=== PATIENT | male | born 1940 | race Caucasian/White ===

== ENCOUNTER 2017-04-16 22:01 | Emergency (ER) | payer MEDICARE, BC ==
[2017-04-17] MEDS ORDERED: Ondansetron INJ* 2 MG/ML VIAL IV ONE (00:26)
[2017-04-17] MEDS ORDERED: NS 0.9% 1000 ML* 2,000 ML IV ONE (00:26)
[2017-04-17] MEDS ORDERED: Morphine INJ* 4 MG/ML 1 ML SYRINGE IV ONE (00:26)
[2017-04-17 01:06] LABS: Hematocrit 40 % (42-52); Hemoglobin 13.6 g/dl (14.0-18.0); Mean Corpuscular HGB Conc 34 g/dl (31-36); Mean Corpuscular Hemoglobin 34 pg (27-31); Mean Corpuscular Volume 101 fL (80-94); Mean Platelet Volume 8 um3 (7.4-10.4); Red Cell Distribution Width 13 % (10.5-15); White Blood Count 18.8 10^3/ul (3.5-10.8)
[2017-04-17 01:18] LABS: Add Diff/Slide Review? Slide Review Added; Comments Flag Yes
[2017-04-17 01:34] LABS: C Reactive Protein 68.29 mg/L (< 5.00); Total Protein 7.2 g/dL (6.4-8.9)
[2017-04-17 01:46] LABS: Albumin 4.4 g/dL (3.2-5.2); BUN/Creatinine Ratio 17.6 (8-20); Calcium 9.5 mg/dL (8.6-10.3); EGFR Non-African American 87.9 (>60); Globulin 2.5 g/dL (2-4); Potassium 3.9 mmol/L (3.5-5.0); Total Bilirubin 0.9 mg/dL (0.2-1.0)
[2017-04-17 01:56] LABS: Immature Granulocytes 2 % (0-9); Neutrophil % 47 % (38-83); Reactive Lymph % 7 % (0-6)
[2017-04-17 01:57] LABS: Hypochromasia 1+; Macrocytosis 1+; Microcytosis 1+
[2017-04-17] MEDS ORDERED: Iohexol 300* (CONTRAST) 10 ML SDV IV ONE (01:57)
[2017-04-17 02:47] LABS: Urine Bilirubin Negative (Negative); Urine Glucose Negative (Negative); Urine Nitrite Negative (Negative)
[2017-04-17] MEDS ORDERED: Ciprofloxacin TAB* 500 MG PO ONE (03:38)
[2017-04-17] MEDS ORDERED: HYDROcodone/ACETAMIN 5-325 MG* 1 TAB PO ONE (03:39)
[2017-04-17] MEDS ORDERED: metroNIDAZOLE TAB* 250 MG PO ONE (03:39)
[2017-04-17 04:08] VITALS: BP 115/57
--- NOTE | 2017-04-17 04:19 | ED ---
Zacarias Jang Alok, scribed for Florin He MD on 04/17/17 at 0101 . Abdominal Pain/Male - HPI Summary HPI Summary: 76M presents to the ED with left-sided abd pain for the last 3 days. The patient states his abd pain comes and goes, waxing and waning in intensity and is accompanied by constipation. Pt states his abd pain worsens with food and ambulation. Pt denies nausea, fever, chills, back pain, or testicular pain. Pt denies loss of appetite. Pt denies CP, SOB, or rash. PMHx includes h/o diverticulitis x3, last episode December 2015. Pt drinks ETOH occasionally and is a former tobacco smoker. - History of Current Complaint Chief Complaint: EDAbdPain Stated Complaint: ABD PAIN Time Seen by Provider: 04/17/17 00:07 Hx Obtained From: Patient Onset/Duration: Lasting Days, Still Present Timing: Intermittent Severity Initially: Moderate Severity Currently: Moderate Pain Intensity: 8 Pain Scale Used: 0-10 Numeric Location: Discrete At: LLQ Radiates: No Aggravating Factor(s): Food, Movement Alleviating Factor(s): Nothing Associated Signs And Symptoms: Positive: Constipation. Negative: Fever, Chest Pain, Back Pain, Decreased Appetite, Nausea - Allergies/Home Medications Allergies/Adverse Reactions: Allergies Allergy/AdvReac Type Severity Reaction Status Date / Time No Known Allergies Allergy Verified 11/20/13 14:32 PMH/Surg Hx/FS Hx/Imm Hx Endocrine/Hematology History: Denies: Hx Diabetes, Hx Thyroid Disease Cardiovascular History: Denies: Hx Hypertension Respiratory History: Denies: Hx Asthma, Hx Chronic Obstructive Pulmonary Disease (COPD) GI History: Denies: Hx Ulcer - Surgical History Surgery Procedure, Year, and Place: Pleuarodesis, Tonsillectomy, deviated septum Infectious Disease History: No Infectious Disease History: Denies: Hx Clostridium Difficile, Hx Hepatitis, Hx Human Immunodeficiency Virus (HIV), Hx of Known/Suspected MRSA, Hx Shingles, Hx Tuberculosis, Hx Known/ Suspected VRE, Hx Known/Suspected VRSA, History Other Infectious Disease, Traveled Outside the [place] in Last 30 Days - Family History Known Family History: Positive: Other - No- diverticulitis - Social History Occupation: Retired Lives: With Family Alcohol Use: Daily Alcohol Amount: 1 cocktail and a beer. Substance Use Type: Reports: None Smoking Status (MU): Former Smoker Review of Systems Negative: Fever, Chills Negative: Chest Pain Negative: Shortness Of Breath Positive: Abdominal Pain, Other - constipation. Negative: Nausea Negative: pain - testicular Negative: Other - back pain Negative: Rash All Other Systems Reviewed And Are Negative: Yes Physical Exam - Summary Physical Exam Summary: The patient is well-nourished in no acute distress and in no acute pain. The skin is warm and dry and skin color reflects adequate perfusion. HEENT: The head is normocephalic and atraumatic. The pupils are equal and reactive. The conjunctivae are clear and without drainage. Nares are patent and without drainage. Mouth reveals moist mucous membranes and the throat is without erythema and exudate. The external ears are intact. The ear canals are patent and without drainage. The tympanic membranes are intact. Neck is supple with full range of motion and non-tender. There are no carotid bruits. There is no neck vein distension. Respiratory: Chest is non-tender. Lungs are clear to auscultation and breath sounds are symmetrical and equal. Cardiovascular: Hear is regular rate and rhythm. There is no murmur or rub auscultated. There is no peripheral edema and pulses are symmetrical and equal. No tachycardia. Good femoral pulses. Abdomen: Left lower quadrant tenderness. Positive Guarding. Rebound questionable. Hyperactive bowel sounds. Musculoskeletal: There is no back pain noted. No CVA tenderness. Extremities are non-tender with full range of motion. There is good capillary refill. There is no peripheral edema or calf tenderness elicited. Neurological: Patient is alert and oriented to person, place and time. The patient has symmetrical motor strength in all four extremities. Cranial nerves are grossly intact. Deep tendon reflexes are symmetrical and equal in all four extremities. Psychiatric: The patient has an appropriate affect and does not exhibit any anxiety or depression. Triage Information Reviewed: Yes Vital Signs On Initial Exam: Initial Vitals Temp Pulse Resp BP Pulse Ox 98.9 F 92 18 130/70 99 04/16/17 22:15 04/16/17 22:15 04/16/17 22:15 04/16/17 22:15 04/16/17 22:15 Vital Signs Reviewed: Yes - [place] Coma Scale Coma Scale Total: 15 Diagnostics - Vital Signs Vital Signs Temp Pulse Resp BP Pulse Ox 04/17/17 00:43 19 04/17/17 00:00 92 96 04/16/17 23:30 90 123/64 98 04/16/17 23:00 89 124/64 98 04/16/17 22:53 91 99 04/16/17 22:52 125/57 04/16/17 22:51 98.2 F 90 19 123/72 99 04/16/17 22:15 98.9 F 92 18 130/70 99 - Laboratory Lab Results: Lab Results 04/16/17 04/17/17 04/17/17 Range/Units 22:45 00:40 00:40 WBC 18.8 H (3.5-10.8) 10^3/ul RBC 4.00 (4.0-5.4) 10^6/ul Hgb 13.6 L (14.0-18.0) g/dl Hct 40 L (42-52) % MCV 101 H (80-94) fL MCH 34 H (27-31) pg MCHC 34 (31-36) g/dl RDW 13 (10.5-15) % Plt Count 247 (150-450) 10^3/ul MPV 8 (7.4-10.4) um3 Immature Gran % (Auto) 2 (0-9) % Neut % (Auto) 47.1 (38-83) % Lymph % (Auto) 44.0 (25-47) % [place] % (Auto) 7.9 (1-9) % Eos % (Auto) 0.1 (0-6) % Baso % (Auto) 0.9 (0-2) % Absolute Neuts (auto) 8.8 H (1.5-7.7) 10^3/ul Absolute Lymphs (auto) 8.3 H (1.0-4.8) 10^3/ul Absolute Monos (auto) 1.5 H (0-0.8) 10^3/ul Absolute Eos (auto) 0 (0-0.6) 10^3/ul Absolute Basos (auto) 0.2 (0-0.2) 10^3/ul Absolute Nucleated RBC 0.03 10^3/ul Neutrophils % 47 (38-83) % Band Neutrophils % 2 (0-8) % Lymphocytes % 30 (25-47) % Reactive Lymphs % 7 H (0-6) % Monocytes % 14 H (0-13) % Nucleated RBC % 0.1 Normal RBC Morphology Not Reportable Hypochromasia 1+ Microcytosis 1+ Macrocytosis 1+ Sodium 134 (133-145) mmol/L Potassium 3.9 (3.5-5.0) mmol/L Chloride 100 L (101-111) mmol/L Carbon Dioxide 23 (22-32) mmol/L Anion Gap 10 (2-11) mmol/L BUN 17 (6-24) mg/dL Creatinine 0.85 (0.67-1.17) mg/dL Est GFR ( Amer) 113.0 (>60) Est GFR (Non-Af Amer) 87.9 (>60) BUN/Creatinine Ratio 17.6 (8-20) Glucose 130 H (70-100) mg/dL Lactic Acid (0.5-2.0) mmol/L Calcium 9.5 (8.6-10.3) mg/dL Total Bilirubin 0.90 (0.2-1.0) mg/dL AST 94 H (13-39) U/L ALT 21 (7-52) U/L Alkaline Phosphatase 73 (34-104) U/L C-Reactive Protein 68.29 H (< 5.00) mg/L Total Protein 7.2 (6.4-8.9) g/dL Albumin 4.4 (3.2-5.2) g/dL Globulin 2.5 (2-4) g/dL Albumin/Globulin Ratio 1.8 (1-3) Lipase 14 (11.0-82.0) U/L Urine Color [place] Urine Appearance Turbid Urine pH 5.0 (5-9) Ur Specific [place] 1.025 (1.010-1.030) Urine Protein Negative (Negative) Urine Ketones 1+ H (Negative) Urine Blood Negative (Negative) Urine Nitrate Negative (Negative) Urine Bilirubin Negative (Negative) Urine Urobilinogen Negative (Negative) Ur Leukocyte Esterase Negative (Negative) Urine Glucose Negative (Negative) 04/17/17 Range/Units 00:40 WBC (3.5-10.8) 10^3/ul RBC (4.0-5.4) 10^6/ul Hgb (14.0-18.0) g/dl Hct (42-52) % MCV (80-94) fL MCH (27-31) pg MCHC (31-36) g/dl RDW (10.5-15) % Plt Count (150-450) 10^3/ul MPV (7.4-10.4) um3 Immature Gran % (Auto) (0-9) % Neut % (Auto) (38-83) % Lymph % (Auto) (25-47) % [place] % (Auto) (1-9) % Eos % (Auto) (0-6) % Baso % (Auto) (0-2) % Absolute Neuts (auto) (1.5-7.7) 10^3/ul Absolute Lymphs (auto) (1.0-4.8) 10^3/ul Absolute Monos (auto) (0-0.8) 10^3/ul Absolute Eos (auto) (0-0.6) 10^3/ul Absolute Basos (auto) (0-0.2) 10^3/ul Absolute Nucleated RBC 10^3/ul Neutrophils % (38-83) % Band Neutrophils % (0-8) % Lymphocytes % (25-47) % Reactive Lymphs % (0-6) % Monocytes % (0-13) % Nucleated RBC % Normal RBC Morphology Hypochromasia Microcytosis Macrocytosis Sodium (133-145) mmol/L Potassium (3.5-5.0) mmol/L Chloride (101-111) mmol/L Carbon Dioxide (22-32) mmol/L Anion Gap (2-11) mmol/L BUN (6-24) mg/dL Creatinine (0.67-1.17) mg/dL Est GFR ( Amer) (>60) Est GFR (Non-Af Amer) (>60) BUN/Creatinine Ratio (8-20) Glucose (70-100) mg/dL Lactic Acid 0.7 (0.5-2.0) mmol/L Calcium (8.6-10.3) mg/dL Total Bilirubin (0.2-1.0) mg/dL AST (13-39) U/L ALT (7-52) U/L Alkaline Phosphatase (34-104) U/L C-Reactive Protein (< 5.00) mg/L Total Protein (6.4-8.9) g/dL Albumin (3.2-5.2) g/dL Globulin (2-4) g/dL Albumin/Globulin Ratio (1-3) Lipase (11.0-82.0) U/L Urine Color Urine Appearance Urine pH (5-9) Ur Specific [place] (1.010-1.030) Urine Protein (Negative) Urine Ketones (Negative) Urine Blood (Negative) Urine Nitrate (Negative) Urine Bilirubin (Negative) Urine Urobilinogen (Negative) Ur Leukocyte Esterase (Negative) Urine Glucose (Negative) Result Diagrams: 04/17/17 00:40 04/17/17 00:40 Lab Statement: Any lab studies that have been ordered have been reviewed, and results considered in the medical decision making process. - CT abd/pel CT CT Interpretation: Positive (See Comments) - IMPRESSION: DIVERTICULITIS WITHOUT ABSCESS FORMATION OR PERFORATION CT Interpretation Completed By: Radiologist Re-Evaluation - Re-Evaluation First Eval Re-Evaluation Time: 03:34 Change: Unchanged Comment: Discussed lab and CT results. Will discharge pt home and he agrees. Abdominal Pain Fem Course/Dx - Course Course Of Treatment: Pt presented with left-sided abd pain and h/o diverticulitis. abd/pel ct showed diverticulitis. Will discharge home with rx for cipro, flagyl, and hydrocodone and recommendation to FU with PCP. - Diagnoses Differential Diagnosis/HQI/PQRI: Appendicitis, Constipation, Diverticulitis, Urinary Tract Infection Provider Diagnoses: Acute diverticulitis Discharge - Discharge Plan Condition: Stable Disposition: HOME Prescriptions: Ciprofloxacin TAB* [Cipro 500 MG TAB*] 500 mg PO BID #20 tab HYDROcodone/ACETAMIN 5-325 MG* [[place] 5-325 TAB*] 1 tab PO Q6H PRN #16 tab MDD 4 PRN Reason: pain Metronidazole [Flagyl 500 MG TAB] 500 mg PO QID #40 tab Patient Education Materials: Diverticulitis (ED) Referrals: Bassem Beckham MD [Primary Care Provider] - Additional Instructions: Please follow up with your primary care provider. The documentation as recorded by the Zacarias ventura Alok accurately reflects the service I personally performed and the decisions made by , Florin He MD.
--- NOTE | 2017-04-17 07:57 | RAD ---
CLINICAL HISTORY: Left lower quadrant pain COMPARISON: None TECHNIQUE: Multiple contiguous axial CT scans were obtained of the abdomen and pelvis after the administration of intravenous contrast. Coronal and sagittal multiplanar reformations are submitted for review. Oral contrast was administered. Delayed images were obtained through the abdomen and pelvis. FINDINGS: LUNG BASES: The lung bases are clear. LIVER: The liver is normal in shape, size, contour, and attenuation. BILE DUCTS: There is no intrahepatic or extrahepatic biliary dilatation. GALLBLADDER: The gallbladder is normal, without pericholecystic inflammatory change. PANCREAS: The pancreas is normal, without mass or ductal dilatation. SPLEEN: Normal in size and appearance. UPPER GI TRACT: Evaluation of the gastrointestinal tract is limited by incomplete gastric distention. The upper GI tract is unremarkable. SMALL BOWEL AND MESENTERY: The small bowel is normal in contour, course, and caliber. There is no obstruction or dilatation. COLON: There is large amount stool within the proximal colon. There is extensive diverticulosis of the descending and sigmoid colon. There is extensive mucosal thickening with stranding of the pericolonic fat of the sigmoid colon, consistent with diverticulitis. There is no loculated fluid collection to suggest abscess. ADRENALS: Normal bilaterally. KIDNEYS: The kidneys are normal in shape, size, contour, and axis. There is no hydronephrosis or nephrolithiasis. BLADDER: The bladder is smooth in contour. PELVIC ORGANS: The prostate is diffusely enlarged. The seminal vesicles are symmetric. AORTA: The aorta is normal. IVC: Unremarkable LYMPH NODES: There is no lymphadenopathy by size criteria. ABDOMINAL WALL: There is no evidence for abdominal wall hernia. BONES AND SOFT TISSUES: There are mild diffuse degenerative changes. OTHER: There is a small amount of free fluid within the pelvis. IMPRESSION: DIVERTICULITIS, WITHOUT LOCULATED FLUID COLLECTION TO SUGGEST ABSCESS. SMALL AMOUNT OF FREE FLUID WITHIN THE PELVIS. ENLARGED PROSTATE.
== END 2017-04-17 04:19 | disposition home or self-care (01) ==
LOC: ED 22:01
DX: K57.92 Diverticulitis of intestine, part unspecified, without perforation or abscess without bleeding (principal); R10.32 Left lower quadrant pain; K59.00 Constipation, unspecified; Z87.891 Personal history of nicotine dependence
CPT/HCPCS: 36415; 74177; 80053; 81003; 83605; 83690; 85025; 86140; 96374; 96375; 99284; A9270-GY; J2270; J2405; Q9967

== ENCOUNTER 2018-08-23 10:39 | Day surgery (SDC) | payer MEDICARE, BC ==
[~2018-08-23 10:39] MED LIST: Acetaminophen TAB* 325 MG PO PRN; Buffered Lidocaine 0.9% SYRIN* 5 ML/SYR SYRINGE INTRADERM ONE
[2018-08-23] MEDS ORDERED: fentaNYL* 50 MCG/ML 2 ML VIAL (100 MCG VIAL) ONE (11:15)
[2018-08-23] MEDS ORDERED: Midazolam* 1 MG/ML 2 ML VIAL (2 MG) ONE (11:16)
[2018-08-23 13:07] VITALS: BP 117/66
[2018-08-23] MEDS ORDERED: Ketorolac 0.5% OPHTH (NF) 0.5 % 5 ML BTL ONE (13:39)
[2018-08-23] MEDS ORDERED: Tetracaine 0.5% OPTH.SOL 4 ML* 1 DROP BTL ONE (13:39)
[2018-08-23] MEDS ORDERED: Cyclopentolate 1% OPTH.SOL* 2 ML BTL ONE (13:39)
[2018-08-23] MEDS ORDERED: Phenylephrine 2.5% OPTH.SOL* 2 ML BTL ONE (13:39)
[2018-08-23] MEDS ORDERED: Tropicamide 1% OPTH.SOL* BTL ONE (13:39)
[2018-08-23] MEDS ORDERED: Neomycin/Polymy/Dex OPHTH.OIN* 3.5 GM ONE (13:39)
[2018-08-23] MEDS ORDERED: Lidocaine 1%* 5 ML VIAL ONE (13:39)
--- NOTE | 2018-08-24 03:10 | OP ---
DATE OF OPERATION: 08/23/18 [facility] DATE OF : 42 SURGEON: Dr. Kevon Richards WOODEN FURNITURE POLISHER: None. ANESTHESIA: Topical with intravenous sedation. PRE-OP DIAGNOSIS: Cataract, right eye. POST-OP DIAGNOSIS: Cataract, right eye. OPERATIVE PROCEDURE: Phacoemulsification and cataract extraction with posterior chamber intraocular lens implant, right eye. COMPLICATIONS: None. BLOOD LOSS: None. DESCRIPTION OF PROCEDURE: The patient was brought to the operating room and received a small amount of intravenous sedation. A drop of Tetracaine was placed in his right eye. The patient was prepped and draped in the usual sterile fashion for ophthalmic surgery and attention was directed to the right eye where a speculum was placed. A paracentesis was created at the 11 o'clock position and 0.1 cc of 1 percent preservative-free Lidocaine was injected into the anterior chamber followed by DisCoVisc. The eye was digitally stabilized while a 2.75 mm keratome was used to create a triplanar clear corneal incision at the 9 o'clock position. A continuous curvilinear capsulorrhexis was created with a cystotome and Utrata forceps. BSS on a cannula was used to hydrodissect the lens from the capsule. Phacoemulsification was performed in a divide-and- conquer technique to create four fragments which were removed. Residual cortical material was removed with irrigation and aspiration. DisCoVisc was used to inflate the capsular bag and an AUOOTO 19.5 Diopter lens was folded and inserted into the capsular bag. DisCoVisc was removed using irrigation and aspiration. BSS on a cannula was used to hydrate the corneal stroma and seal the wound. At the end of the case the pupil was round and the lens was centered. The eye was of normal pressure and the wound was water tight. The speculum was removed and topical Maxitrol ointment was placed on the surface of the eye. The eye was closed, patched and shielded and the patient was sent to the recovery room in stable condition with post operative instructions and follow-up appointment given. [id number]/[facility] #: [id number] BABAK
== END 2018-08-23 13:36 | disposition home or self-care (01) ==
LOC: OREAST 10:39
PROVIDERS: ATTEND Ophthalmology
DX: H25.11 Age-related nuclear cataract, right eye (principal); E78.5 Hyperlipidemia, unspecified; B00.9 Herpesviral infection, unspecified
CPT/HCPCS: A9270-GY; J2250; J3010; V2632

== ENCOUNTER → 2019-08-22 | Day surgery (SDC) | payer MEDICARE, BC ==
[~2019-08-22] MED LIST changes: -Buffered Lidocaine 0.9% SYRIN* 5 ML/SYR SYRINGE INTRADERM ONE; +Buffered Lidocaine 1% SYRIN* 1 ML/SYRINGE INTRADERM ONE; +Cyclopentolate 1% OPTH.SOL* 2 ML BTL ONE; +Ketorolac 0.5% OPHTH (NF) 0.5 % 5 ML BTL ONE; +Lidocaine 1% MPF ** 5 ML VIAL ONE; +Midazolam* 1 MG/ML 5 ML VIAL (5 MG) ONE; +Neomycin/Polymy/Dex OPHTH.OIN* 3.5 GM ONE; +Phenylephr/Ketorolac 1%/0.3% OPH DROP BTL ONE; +Phenylephrine OPHTH SOL 2.5%* 2 ML ONE; +Tetracaine 0.5% OPTH.SOL 4 ML* 1 DROP BTL ONE; +Tropicamide 1% OPTH.SOL* BTL ONE; +fentaNYL* 50 MCG/ML 2 ML VIAL (100 MCG VIAL) ONE
--- NOTE | 2019-08-22 10:37 | OP ---
DATE OF OPERATION: 08/22/19 [facility] DATE OF : 42 SURGEON: Dr. Kevon Richards. GASATERIA ATTENDANT: None. ANESTHESIA: Topical with intravenous sedation. PRE-OP DIAGNOSIS: Cataract with pseudoexfoliation, left eye. POST-OP DIAGNOSIS: Cataract with pseudoexfoliation, left eye. OPERATIVE PROCEDURE: Phacoemulsification and cataract extraction with posterior chamber intraocular lens implant, left eye. COMPLICATIONS: None. BLOOD LOSS: None. DESCRIPTION OF PROCEDURE: The patient was brought to the operating room and received a small amount of intravenous sedation. A drop of Tetracaine was placed in his left eye. The patient was prepped and draped in the usual sterile fashion for ophthalmic surgery and attention was directed to the left eye where a speculum was placed. It was noted that his pupil dilated quite poorly and that he had pseudoexfoliation material present. A paracentesis was created at the 5 o'clock position and 0.1 cc of 1% preservative-free Lidocaine was injected into the anterior chamber followed by DisCoVisc. This failed to dilate the pupil further. The eye was digitally stabilized. A 2.75 mm keratome was used to create a triplanar clear corneal incision at the 3 o'clock position. A Malyugin ring was introduced into the anterior chamber and used to secure the pupil. A continuous curvilinear capsulorrhexis was created using a cystotome and Utrata forceps measuring approximately 4.5 mm in diameter. BSS on a cannula was used to hydrodissect the lens from the capsule. Phacoemulsification was performed in a oupmte-oop-aweesui technique to create 4 fragments, which were removed. Residual cortical material was removed with irrigation and aspiration. Omidria had been added to the irrigating solution. The pressure within the system was reduced on the phacoemulsification machine during the procedure to reduce the possibility of lens subluxation. At this point, DisCoVisc was used to inflate the capsular bag. The capsular bag remained secure and stable. An AU00T0 17.5 diopter lens was inserted into the capsular bag. DisCoVisc was removed from posterior to intraocular lens implant. Supplemental DisCoVisc was placed anterior to the lens. The Malyugin ring was atraumatically removed. At this point, irrigation and aspiration was performed to remove all the viscoelastic from the eye. BSS on a cannula was used to hydrate the corneal stroma and seal the wound. At the end of the case, the pupil was round. The lens was centered and stable. The eye pressure appeared normal and the wound was water tight. The speculum was removed and topical Maxitrol ointment was placed on the surface of the eye. The eye was closed, patched, and shielded, and the patient sent to recovery room in stable condition with postop instructions and followup appointment given. [id number]/[facility] #: [id number] BABAK
[2019-08-22 13:37] VITALS: BP 109/58
== END | disposition home or self-care (01) ==
LOC: OREAST 08:06
PROVIDERS: ATTEND Ophthalmology
DX: H25.12 Age-related nuclear cataract, left eye (principal); H26.8 Other specified cataract; K21.9 Gastro-esophageal reflux disease without esophagitis; D72.820 Lymphocytosis (symptomatic)
CPT/HCPCS: A9270-GY; J1097; J2250; J3010; V2632